=== PATIENT | male | born 1975 | race Caucasian/White ===

== ENCOUNTER 2019-01-18 07:10 | Observation (INO) ==
[2019-01-18] MEDS: NS 1000 ML 1,000 ML IV SCH ×3 (07:25→21:52)
[2019-01-18] MEDS: NITROSTAT SL PRN ×2 (07:25→08:06)
[2019-01-18 07:31] LABS: BASOPHILS % (AUTO) 0.3 % (0.2-1.0); EOSINOPHILS # (AUTO) 0.2 x10^3/uL (0.0-0.2); EOSINOPHILS % (AUTO) 3.8 % (0.9-2.9); HEMATOCRIT 41.4 % (42.0-54.0); HEMOGLOBIN 14.3 g/dL (13.5-18.0); LYMPHOCYTES # (AUTO) 2.8 X10^3/uL (1.3-2.9); LYMPHOCYTES % (AUTO) 47.7 % (21.0-51.0); MEAN CORPUSCULAR HEMOGLOBIN 32.3 pg (27.0-34.0); MEAN CORPUSCULAR HGB CONC 34.5 g/dL (33.0-35.0); MEAN CORPUSCULAR VOLUME 93.6 fL (80.0-100.0); MEAN PLATELET VOLUME 8.6 fL (7.4-11.0); MONOCYTES # (AUTO) 0.5 x10^3/uL (0.3-0.8); MONOCYTES % (AUTO) 8.6 % (0.0-13.0); NEUTROPHILS # (AUTO) 2.3 x10^3/uL (2.2-4.8); NEUTROPHILS % (AUTO) 39.6 % (42.0-75.0); PLATELET COUNT 238 X10^3/uL (150.0-450.0); RED BLOOD COUNT 4.42 X10^6/uL (4.7-6.0); RED CELL DISTRIBUTION WIDTH 12.3 % (11.6-16.5); WHITE BLOOD COUNT 5.8 X10^3/uL (3.6-10.0)
--- NOTE | 2019-01-18 07:45 | DR.CP ---
HPI Time Seen Time Seen by Provider: 01/18/19 07:32 PCP Primary Care Physician: DR. VOSS Complaint Chief Complaint Doctor Comments: Patient presents with his pcp with complaint of right sided chest pain of acute onset, with increasing dyspnea. He admits to the pain radiating to right neck. He denies a history of cardiac disease. His father of heart attack at early age (52). Patient denies use of cigarettes. Chief Complaint:: PT TO ER WITH C/O OF HIS HEART RACING LAST NIGHT AND HE WAS FEELING WEAK, PT C/O SOB AND RIGHT SIDED CHEST PAIN ( 3) ON THE PAIN SCALE , PTS RESP > , PT APPEARS TO BE VERY ANXIOUS, DUE TO HIS FATHER PASSING AWAT AT AGE 61 SUDDENLY,BR Source History Provided: Patient Mode of Arrival Mode of Arrival: Ambulatory Timing Onset of Chief Complaint: 01/18/19 Location Chest Pain Radiation Location: None Associated Signs and Symptoms Associated Signs and Symptoms: Shortness of Breath PMH PMH Past Medical History: No Past Surgical History: No Family History History of Family Medical Conditions: Yes Family Medical History: Sudden Cardiac Social History Does patient currently use any type of tobacco product: No Have you used tobacco products in the last 12 months: No Type of Tobacco Use: None Does any household member use tobacco: No Alcohol Use: Heavy Do you use any recreational Drugs:: No Lives With: Alone and Family Lives Where: Home infectious screening In the last 2 months have you had wt loss of >10#?: NO Have you had fever, night sweats or hemotysis?: No Have you traveled outside the country in the last 6 months?: No Isolation: Standard ROS Review of Systems Constitutional: No Symptoms Reported Eyes: No Symptoms Reported ENTM: No Symptoms Reported Respiratoy: No Symptoms Reported Cardiovascular: See HPI and Chest Pain (right ) Gastrointestinal/Abdominal: No Symptoms Reported Genitourinary: No Symptoms Reported Neurological: No Symptoms Reported Musculoskeletal: Chest wall (right) Integumentary: No Symptoms Reported Hematologic/Lymphatic: No Symptoms Reported Endocrine: No Symptoms Reported Psychiatric: No Symptoms Reported All Other Systems: Reviewed and Negative PE Vitals Vitals: Temperature 97.8 F Pulse Rate [Left Brachial] 71 Pulse Rate 66 Respiratory Rate 20 Blood Pressure [Left Arm] 121/89 Blood Pressure 131/83 O2 Sat by Pulse Oximetry 98 General Limitations: No Limitations General Appearance: Alert and Anxious Head Head Exam: Normal Inspection, Atraumatic and Normocephalic Eyes Eye exam: Normal Appearance, PERRL and EOMI ENT ENT Exam: Normal Exam, Normal Oropharynx, Normal External Ear Exam, Mucous Membranes Moist, Mucous Membranes Dry and TM's Normal Bilaterally Chest Chest Inspection: Normal Inspection and Symmetric Chest Wall Rise Respiratory Respiratory Exam: Normal Lung Sounds Bilat Respiratory Exam: Bilateral: Clear to Auscultation Cardiovascular Cardiovascular Exam: Regular Rate and Normal Rhythm Pulse: Normal and Radial Edema: Normal Abdominal Exam Abdominal Exam: Normal Inspection Extremities Extremities Exam: Normal Inspection Back Back Exam: Normal Inspection and Full ROM Neurologic Neurological Exam: Alert, Oriented X3 and CN II-XII Intact Psychiatric Psychiatric Exam: Normal Affect and Normal Mood Skin Skin Exam: Warm, Dry, Intact and Normal Color MDM Differential Diagnosis Differential Diagnosis: Chest Wall Pain, Costochondritis, Pneumothorax and Pulmonary Embolus ROR Labs Reviewed Result Diagrams: 01/19/19 05:09 01/19/19 05:09 Laboratory: WBC 4.5 X10^3/uL (3.6-10.0) 01/19/19 05:09 RBC 4.01 X10^6/uL (4.7-6.0) L 01/19/19 05:09 Hgb 13.0 g/dL (13.5-18.0) L 01/19/19 05:09 Hct 38.1 % (42.0-54.0) L 01/19/19 05:09 MCV 95.2 fL (80.0-100.0) 01/19/19 05:09 MCH 32.5 pg (27.0-34.0) 01/19/19 05:09 MCHC 34.1 g/dL (33.0-35.0) 01/19/19 05:09 RDW 12.4 % (11.6-16.5) 01/19/19 05:09 Plt Count 191 X10^3/uL (150.0-450.0) 01/19/19 05:09 MPV 9.2 fL (7.4-11.0) 01/19/19 05:09 Neut % (Auto) 49.4 % (42.0-75.0) 01/19/19 05:09 Lymph % (Auto) 35.2 % (21.0-51.0) 01/19/19 05:09 [place] % (Auto) 9.2 % (0.0-13.0) 01/19/19 05:09 Eos % (Auto) 5.7 % (0.9-2.9) H 01/19/19 05:09 Baso % (Auto) 0.5 % (0.2-1.0) 01/19/19 05:09 Neut # (Auto) 2.2 x10^3/uL (2.2-4.8) 01/19/19 05:09 Lymph # (Auto) 1.6 X10^3/uL (1.3-2.9) 01/19/19 05:09 [place] # (Auto) 0.4 x10^3/uL (0.3-0.8) 01/19/19 05:09 Eos # (Auto) 0.3 x10^3/uL (0.0-0.2) H 01/19/19 05:09 Baso # (Auto) 0.0 X10^3/uL (0.0-0.1) 01/19/19 05:09 Absolute Nucleated RBC 0.0 /100WBC 01/19/19 05:09 INR Target Range - 01/18/19 07:20 INR 0.88 (0.8-1.3) 01/18/19 07:20 APTT 28.6 SECONDS (22.9-36.5) 01/18/19 07:20 PTT Comment - 01/18/19 07:20 D-Dimer < 100 ng/mL (0-400) 01/18/19 07:20 Sodium 142 mmol/L (136-145) 01/19/19 05:09 Corrected Sodium TNP 01/19/19 05:09 Potassium 4.3 mmol/L (3.5-5.1) 01/19/19 05:09 Chloride 106 mmol/L (98-107) 01/19/19 05:09 Carbon Dioxide 28.2 mmol/L (21-32) 01/19/19 05:09 BUN 17 mg/dL (7-18) 01/19/19 05:09 Creatinine 1.09 mg/dL (0.70-1.30) 01/19/19 05:09 Est GFR (MDRD) Af Amer > 60 (>60) 01/19/19 05:09 Est GFR (MDRD) Non-Af > 60 (>60) 01/19/19 05:09 Glucose 99 mg/dL (65-99) 01/19/19 05:09 Calcium 8.8 mg/dL (8.5-10.1) 01/19/19 05:09 Corrected Calcium TNP 01/19/19 05:09 Total Bilirubin 0.30 mg/dL (0.2-1.0) 01/19/19 05:09 AST 18 Units/L (15-37) 01/19/19 05:09 ALT 22 Units/L (12-78) 01/19/19 05:09 Alkaline Phosphatase 39 Units/L (46-116) L 01/19/19 05:09 Creatine Kinase 212 Units/L (39-308) 01/18/19 21:37 CK-MB (CK-2) 1.2 ng/mL (0-4.0) 01/18/19 21:37 CK/CKMB % Calc 0.6 % (<4) 01/18/19 21:37 Troponin I < 0.02 ng/mL (0-1.5) 01/18/19 21:37 Total Protein 6.3 g/dL (6.4-8.2) L 01/19/19 05:09 Albumin 3.5 g/dL (3.4-5.0) 01/19/19 05:09 Globulin 2.8 g/dL (2.5-4.5) 01/19/19 05:09 Albumin/Globulin Ratio 1.3 Ratio (1.1-2.1) 01/19/19 05:09 Triglycerides 50 mg/dL (0-150) 01/19/19 05:09 Cholesterol 170 mg/dL (0-200) 01/19/19 05:09 LDL Cholesterol, Calc 80 mg/dL (0-100) 01/19/19 05:09 HDL Cholesterol 80 mg/dL (40-60) H 01/19/19 05:09 Cholesterol/HDL Ratio 2.1 (0.0-5.0) 01/19/19 05:09 Diagnosis Discharge Problem: Chest pain Qualifiers: Chest pain type: intercostal pain Qualified Code(s): R07.82 - Intercostal pain Instructions Instructions: Nonspecific Chest Pain Chest Wall Pain Forms: Patient Portal ADDITIONAL NOTES Additional Notes Additional Notes: Patient care was assumed by on coming physician Dr. Hamlin at change of shift
[2019-01-18 07:47] LABS: BLOOD UREA NITROGEN 14 mg/dL (7-18); CALCIUM 9.4 mg/dL (8.5-10.1); CARBON DIOXIDE 25.3 mmol/L (21-32); CHLORIDE 101 mmol/L (98-107); COR NA(FOR HYPERGLY) 141 mmol/L (136-145); CREATININE 1.18 mg/dL (0.70-1.30); SODIUM 140 mmol/L (136-145); TROPONIN I < 0.02 ng/mL (0-1.5); eGFR NON BLACK RACES > 60 (>60)
--- NOTE | 2019-01-18 07:48 | RAD ---
HISTORY: Chest pain, shortness of breath Study: Chest AP portable Comparison: None Findings: The heart is within normal limits in size. The [place] are normal. The lungs are well inflated and free of acute infiltrates. No pleural effusions are identified. The bony thorax is unremarkable. IMPRESSION: No significant abnormality identified Reported By:
[2019-01-18 07:51] LABS: ALANINE AMINOTRANSFERASE 28 Units/L (12-78); ALBUMIN 4.4 g/dL (3.4-5.0); ALKALINE PHOSPHATASE 51 Units/L (46-116); ASPARTATE AMINO TRANSFERASE 25 Units/L (15-37); CKMB % 0.8 % (<4); CREATINE KINASE 354 Units/L (39-308); CREATINE KINASE MB 2.7 ng/mL (0-4.0); TOTAL PROTEIN 7.6 g/dL (6.4-8.2)
--- NOTE | 2019-01-18 08:43 | CT ---
HISTORY: Right-sided chest pain Study: CTA chest with contrast for pulmonary embolus Comparison: None Technique: Axial post-contrast images with coronal, sagittal, and three-dimensional maximum intensity projection images obtained and evaluated. Dose reduction procedures were used with mA/kv adjusted for body size. Findings: The examination is nondiagnostic for the determination of acute pulmonary thromboembolic disease due to markedly suboptimal bolus timing. Examination of the mediastinum demonstrated no evidence for mediastinal masses, enlarged mediastinal or enlarged hilar adenopathy. The thoracic aorta is normal. No pleural effusions are identified. No chest wall or axillary abnormality is identified. Those portions of the upper abdominal organs visualized were within normal limits. Examination of the lung [place] demonstrated no significant nodules, masses, alveolar infiltrates, peribronchial thickening, or bronchiectasis. IMPRESSION: Nondiagnostic examination for the determination of acute pulmonary thromboembolic disease due to markedly suboptimal bolus timing. Normal thoracic aorta Lungs clear Reported By:
--- NOTE | 2019-01-18 08:58 | DR.CP ---
HPI Time Seen Time Seen by Provider: 01/18/19 07:32 PCP Primary Care Physician: DR. VOSS HPI Comment HPI Comment: HISTORY AND PHYSICAN EXAM PER DR. SALAZAR. Complaint Chief Complaint:: PT TO ER WITH C/O OF HIS HEART RACING LAST NIGHT AND HE WAS FEELING WEAK, PT C/O SOB AND RIGHT SIDED CHEST PAIN ( 3) ON THE PAIN SCALE , PTS RESP > , PT APPEARS TO BE VERY ANXIOUS, DUE TO HIS FATHER PASSING AWAT AT AGE 61 SUDDENLY,BR Self Treatment fo Chief Complaint: PT IS DIAPHORETIC, Source History Provided: Patient Mode of Arrival Mode of Arrival: Ambulatory Timing Onset of Chief Complaint: 01/18/19 Location Chest Pain Radiation Location: None Associated Signs and Symptoms Associated Signs and Symptoms: Shortness of Breath PMH PMH Past Medical History: No Past Surgical History: No Family History History of Family Medical Conditions: Yes Family Medical History: Sudden Cardiac Social History Does patient currently use any type of tobacco product: No Have you used tobacco products in the last 12 months: No Type of Tobacco Use: None Does any household member use tobacco: No Alcohol Use: Heavy Do you use any recreational Drugs:: No Lives With: Alone and Family Lives Where: Home infectious screening In the last 2 months have you had wt loss of >10#?: NO Have you had fever, night sweats or hemotysis?: No Have you traveled outside the country in the last 6 months?: No Isolation: Standard PE Vitals Vitals: Temperature 97.8 F Pulse Rate [Left Brachial] 71 Pulse Rate 66 Respiratory Rate 20 Blood Pressure [Left Arm] 121/89 Blood Pressure 131/83 O2 Sat by Pulse Oximetry 98 MDM Additional Information Additional Information Obtained From: Family Differential Diagnosis Differential Diagnosis: Angina, Chest Wall Pain, CHF, Costochondritis, Myocardial Infarction, Pericarditis, Pneumonia, Pneumothorax and Pulmonary Embolus COURSE Treatment Treatment: SEE ORDERS. Consultation Consultation Comments: DR VOSS HERE IN ED SEING PATIENT. HE WANT PATIENT ADMITTED FOR CHEST PAIN TO RULE OUT PA. I DID IN ADMISSION ORDERS. Education/Counseling Education/Counseling: Patient and Family Educated On: Diagnosis ROR Labs Reviewed Laboratory Results Reviewed?: Yes Result Diagrams: 01/19/19 05:09 01/19/19 05:09 Laboratory: WBC 4.5 X10^3/uL (3.6-10.0) 01/19/19 05:09 RBC 4.01 X10^6/uL (4.7-6.0) L 01/19/19 05:09 Hgb 13.0 g/dL (13.5-18.0) L 01/19/19 05:09 Hct 38.1 % (42.0-54.0) L 01/19/19 05:09 MCV 95.2 fL (80.0-100.0) 01/19/19 05:09 MCH 32.5 pg (27.0-34.0) 01/19/19 05:09 MCHC 34.1 g/dL (33.0-35.0) 01/19/19 05:09 RDW 12.4 % (11.6-16.5) 01/19/19 05:09 Plt Count 191 X10^3/uL (150.0-450.0) 01/19/19 05:09 MPV 9.2 fL (7.4-11.0) 01/19/19 05:09 Neut % (Auto) 49.4 % (42.0-75.0) 01/19/19 05:09 Lymph % (Auto) 35.2 % (21.0-51.0) 01/19/19 05:09 [place] % (Auto) 9.2 % (0.0-13.0) 01/19/19 05:09 Eos % (Auto) 5.7 % (0.9-2.9) H 01/19/19 05:09 Baso % (Auto) 0.5 % (0.2-1.0) 01/19/19 05:09 Neut # (Auto) 2.2 x10^3/uL (2.2-4.8) 01/19/19 05:09 Lymph # (Auto) 1.6 X10^3/uL (1.3-2.9) 01/19/19 05:09 [place] # (Auto) 0.4 x10^3/uL (0.3-0.8) 01/19/19 05:09 Eos # (Auto) 0.3 x10^3/uL (0.0-0.2) H 01/19/19 05:09 Baso # (Auto) 0.0 X10^3/uL (0.0-0.1) 01/19/19 05:09 Absolute Nucleated RBC 0.0 /100WBC 01/19/19 05:09 INR Target Range - 01/18/19 07:20 INR 0.88 (0.8-1.3) 01/18/19 07:20 APTT 28.6 SECONDS (22.9-36.5) 01/18/19 07:20 PTT Comment - 01/18/19 07:20 D-Dimer < 100 ng/mL (0-400) 01/18/19 07:20 Sodium 142 mmol/L (136-145) 01/19/19 05:09 Corrected Sodium TNP 01/19/19 05:09 Potassium 4.3 mmol/L (3.5-5.1) 01/19/19 05:09 Chloride 106 mmol/L (98-107) 01/19/19 05:09 Carbon Dioxide 28.2 mmol/L (21-32) 01/19/19 05:09 BUN 17 mg/dL (7-18) 01/19/19 05:09 Creatinine 1.09 mg/dL (0.70-1.30) 01/19/19 05:09 Est GFR (MDRD) Af Amer > 60 (>60) 01/19/19 05:09 Est GFR (MDRD) Non-Af > 60 (>60) 01/19/19 05:09 Glucose 99 mg/dL (65-99) 01/19/19 05:09 Calcium 8.8 mg/dL (8.5-10.1) 01/19/19 05:09 Corrected Calcium TNP 01/19/19 05:09 Total Bilirubin 0.30 mg/dL (0.2-1.0) 01/19/19 05:09 AST 18 Units/L (15-37) 01/19/19 05:09 ALT 22 Units/L (12-78) 01/19/19 05:09 Alkaline Phosphatase 39 Units/L (46-116) L 01/19/19 05:09 Creatine Kinase 212 Units/L (39-308) 01/18/19 21:37 CK-MB (CK-2) 1.2 ng/mL (0-4.0) 01/18/19 21:37 CK/CKMB % Calc 0.6 % (<4) 01/18/19 21:37 Troponin I < 0.02 ng/mL (0-1.5) 01/18/19 21:37 Total Protein 6.3 g/dL (6.4-8.2) L 01/19/19 05:09 Albumin 3.5 g/dL (3.4-5.0) 01/19/19 05:09 Globulin 2.8 g/dL (2.5-4.5) 01/19/19 05:09 Albumin/Globulin Ratio 1.3 Ratio (1.1-2.1) 01/19/19 05:09 Triglycerides 50 mg/dL (0-150) 01/19/19 05:09 Cholesterol 170 mg/dL (0-200) 01/19/19 05:09 LDL Cholesterol, Calc 80 mg/dL (0-100) 01/19/19 05:09 HDL Cholesterol 80 mg/dL (40-60) H 01/19/19 05:09 Cholesterol/HDL Ratio 2.1 (0.0-5.0) 01/19/19 05:09 EKG Rate: 107 [place]: Normal Rhythm: ST Block: None Hypertrophy: None ST: Nonsp Diagnosis Discharge Problem: Chest pain Qualifiers: Chest pain type: intercostal pain Qualified Code(s): R07.82 - Intercostal pain Instructions Instructions: Nonspecific Chest Pain Chest Wall Pain Forms: Patient Portal
[2019-01-18] MEDS ORDERED: XANAX PO PRN (10:07)
[2019-01-18] MEDS ORDERED: K-LYTE EFFERVESCENT PO ONE (10:52)
[2019-01-18] MEDS ORDERED: K-LYTE EFFERVESCENT ONE (11:05)
[2019-01-18 14:33] VITALS: BMI 26.6
[2019-01-18 16:31] LABS: CKMB % 0.7 % (<4); CREATINE KINASE 246 Units/L (39-308); CREATINE KINASE MB 1.6 ng/mL (0-4.0); TROPONIN I < 0.02 ng/mL (0-1.5)
[2019-01-18 22:12] LABS: CKMB % 0.6 % (<4); CREATINE KINASE 212 Units/L (39-308); CREATINE KINASE MB 1.2 ng/mL (0-4.0); TROPONIN I < 0.02 ng/mL (0-1.5)
[2019-01-19] MEDS: NS 1000 ML 1,000 ML IV SCH ×3 (00:09→09:14)
[2019-01-19 05:42] LABS: BASOPHILS % (AUTO) 0.5 % (0.2-1.0); EOSINOPHILS # (AUTO) 0.3 x10^3/uL (0.0-0.2); EOSINOPHILS % (AUTO) 5.7 % (0.9-2.9); HEMATOCRIT 38.1 % (42.0-54.0); LYMPHOCYTES # (AUTO) 1.6 X10^3/uL (1.3-2.9); LYMPHOCYTES % (AUTO) 35.2 % (21.0-51.0); MEAN CORPUSCULAR HEMOGLOBIN 32.5 pg (27.0-34.0); MEAN CORPUSCULAR HGB CONC 34.1 g/dL (33.0-35.0); MEAN CORPUSCULAR VOLUME 95.2 fL (80.0-100.0); MEAN PLATELET VOLUME 9.2 fL (7.4-11.0); MONOCYTES # (AUTO) 0.4 x10^3/uL (0.3-0.8); MONOCYTES % (AUTO) 9.2 % (0.0-13.0); NEUTROPHILS # (AUTO) 2.2 x10^3/uL (2.2-4.8); NEUTROPHILS % (AUTO) 49.4 % (42.0-75.0); PLATELET COUNT 191 X10^3/uL (150.0-450.0); RED BLOOD COUNT 4.01 X10^6/uL (4.7-6.0); RED CELL DISTRIBUTION WIDTH 12.4 % (11.6-16.5); WHITE BLOOD COUNT 4.5 X10^3/uL (3.6-10.0)
[2019-01-19 05:50] LABS: ALANINE AMINOTRANSFERASE 22 Units/L (12-78); ALBUMIN 3.5 g/dL (3.4-5.0); ALKALINE PHOSPHATASE 39 Units/L (46-116); ASPARTATE AMINO TRANSFERASE 18 Units/L (15-37); BLOOD UREA NITROGEN 17 mg/dL (7-18); CALCIUM 8.8 mg/dL (8.5-10.1); CARBON DIOXIDE 28.2 mmol/L (21-32); CHLORIDE 106 mmol/L (98-107); CHOL/HDL RATIO 2.1 (0.0-5.0); CHOLESTEROL 170 mg/dL (0-200); CREATININE 1.09 mg/dL (0.70-1.30); HDL CHOLESTEROL 80 mg/dL (40-60); SODIUM 142 mmol/L (136-145); TOTAL PROTEIN 6.3 g/dL (6.4-8.2); TRIGLYCERIDES 50 mg/dL (0-150); eGFR NON BLACK RACES > 60 (>60)
[2019-01-19 08:56] VITALS: BP 121/89
== END 2019-01-19 09:10 | disposition home or self-care (01) ==
LOC: ER 07:15 → MED/SURG 07:15
PROVIDERS: ADMIT Obstetrics & Gynecology Obstetrics; ATTEND Obstetrics & Gynecology Obstetrics
DX: R07.89 Other chest pain; R07.82 Intercostal pain; R06.02 Shortness of breath; F41.8 Other specified anxiety disorders
CPT/HCPCS: 36415; 71010; 71045; 71275; 80053; 80061; 82550; 82553; 84484; 85025; 85378; 85610; 85730; 93005; 94760; 96365; 96367; 96375; 99284; A4222; G0378; J7030; J8499